=== PATIENT | female | born 1975 | race Hispanic/Latino ===

== ENCOUNTER 2021-09-19 18:08 | Emergency (ER) | payer OTHER ==
[2021-09-19] MEDS ORDERED: MORPHINE 4 MG/1 ML INJ IV ONE (18:23)
[2021-09-19] MEDS ORDERED: ONDANSETRON 4 MG/2 ML INJ IV ONE (18:23)
--- NOTE | 2021-09-19 18:27 | Emergency Department Report ---
ED General Adult HPI - General Stated complaint: SYNCOPAL EPISODE Time Seen by Provider: 09/19/21 18:13 Source: patient, EMS - History of Present Illness Initial comments: Patient is 45 years old female with history of migraine. Patient brought to the emergency room via EMS from work for evaluation of sudden onset of syncope. Patient stated that she passed out. Patient is currently complaining of tightness in her chest with shortness of breath. Patient denied any fever or chills. Patient denied any prior symptoms. No focal weakness, numbness or tingling sensation. - Related Data Previous Rx's Medication Instructions Recorded Last Taken Type Amoxicillin/Potassium Clav 1 each PO BID #14 tablet 09/19/21 Unknown Rx [Augmentin 875-125 Tablet] Ondansetron [Zofran Odt] 4 mg PO Q8HR PRN #14 tab.rapdis 09/19/21 Unknown Rx metroNIDAZOLE [Flagyl] 500 mg PO Q12HR #14 tab 09/19/21 Unknown Rx traMADoL [Ultram 50 MG tab] 50 mg PO Q4HR PRN #14 tablet 09/19/21 Unknown Rx Allergies Allergy/AdvReac Type Severity Reaction Status Date / Time No Known Allergies Allergy Verified 09/19/21 18:49 ED Review of Systems ROS: Stated complaint: SYNCOPAL EPISODE Other details as noted in HPI Comment: All other systems reviewed and negative Constitutional: denies: chills, fever ENT: denies: throat pain Cardiovascular: denies: chest pain, palpitations Gastrointestinal: denies: abdominal pain, nausea, vomiting, diarrhea, constipation, hematemesis, melena, hematochezia Musculoskeletal: denies: back pain Neurological: denies: headache, weakness, numbness, paresthesias, confusion, abnormal gait ED Past Medical Hx - Medications Home Medications: Home Medications Medication Instructions Recorded Confirmed Last Taken Type Amoxicillin/Potassium Clav 1 each PO BID #14 tablet 09/19/21 Unknown Rx [Augmentin 875-125 Tablet] Ondansetron [Zofran Odt] 4 mg PO Q8HR PRN #14 tab.rapdis 09/19/21 Unknown Rx metroNIDAZOLE [Flagyl] 500 mg PO Q12HR #14 tab 09/19/21 Unknown Rx traMADoL [Ultram 50 MG tab] 50 mg PO Q4HR PRN #14 tablet 09/19/21 Unknown Rx ED Physical Exam - General General appearance: alert, in no apparent distress - Head Head exam: Present: atraumatic, normocephalic, normal inspection - Eye Eye exam: Present: normal appearance - ENT ENT exam: Present: normal exam, normal orophraynx, mucous membranes moist - Neck Neck exam: Present: normal inspection, full ROM. Absent: tenderness, meningis mus - Respiratory Respiratory exam: Present: normal lung sounds bilaterally - Cardiovascular Cardiovascular Exam: Present: regular rate, normal rhythm, normal heart sounds - GI/Abdominal GI/Abdominal exam: Present: soft, normal bowel sounds. Absent: distended, tenderness, guarding, rebound, rigid, organomegaly, mass, bruit, pulsatile mass, hernia - Extremities Exam Extremities exam: Present: normal inspection, full ROM, normal capillary refill. Absent: tenderness, pedal edema, joint swelling, calf tenderness - Back Exam Back exam: Present: normal inspection, full ROM. Absent: CVA tenderness (R), CVA tenderness (L) - Neurological Exam Neurological exam: Present: alert, oriented X3, CN II-XII intact, normal gait, reflexes normal. Absent: motor sensory deficit - Psychiatric Psychiatric exam: Present: normal mood, anxious. Absent: suicidal ideation - Skin Skin exam: Present: warm, intact, normal color ED Course Vital Signs 09/19/21 09/19/21 09/19/21 18:48 21:30 22:30 Temperature 97.1 F L 97.7 F Pulse Rate 72 66 62 Respiratory 22 12 13 Rate Blood Pressure 119/80 Blood Pressure 110/77 115/70 [Right] O2 Sat by Pulse 99 99 98 Oximetry ED Medical Decision Making - Lab Data Result diagrams: 09/19/21 18:38 09/19/21 18:38 - Radiology Data Radiology results: report reviewed - Medical Decision Making Patient is 45 years old female with history of migraine. Patient brought to the emergency room via EMS from work for evaluation of sudden onset of syncope. P atient stated that she passed out. Patient is currently complaining of tightness in her chest with shortness of breath. Patient denied any fever or chills. Patient denied any prior symptoms. No focal weakness, numbness or tingling sensation. Patient received morphine and Zofran. Normal saline also. EKG is unremarkable. Labs reviewed and showed a potassium of 2.8. Patient received potassium chloride IV and p.o. CTA chest is unremarkable except for left descending colonic diverticulitis. CT brain is negative for acute finding. Patient advised to follow-up with her primary care physician in the next 2 to 3 days and to return to the ER if he develop any new symptoms. Critical care attestation.: If time is entered above; I have spent that time in minutes in the direct care of this critically ill patient, excluding procedure time. ED Disposition Clinical Impression: Acute abdominal pain, Acute chest pain, Syncope, Acute diverticulitis Disposition: HOME / SELF CARE / HOMELESS Is pt being admited?: No Condition: Stable Instructions: Nonspecific Chest Pain, Adult, Diverticulitis, Abdominal Pain, Adult, [id number], Chest Pain (ED), Syncope (ED) Prescriptions: Amoxicillin/Potassium Clav [Augmentin 875-125 Tablet] 1 each PO BID #14 tablet metroNIDAZOLE [Flagyl] 500 mg PO Q12HR #14 tab traMADoL [Ultram 50 MG tab] 50 mg PO Q4HR PRN #14 tablet PRN Reason: Pain Ondansetron [Zofran Odt] 4 mg PO Q8HR PRN #14 tab.rapdis PRN Reason: Nausea And Vomiting Referrals: MARILYN COY MD [Primary Care Provider] - 3-5 Days
[2021-09-19 19:10] LABS: Basophils # (Auto) 0.1 K/mm3 (0.0-0.1); Eosinophils # (Auto) 0.1 K/mm3 (0.0-0.4); Eosinophils % (Auto) 0.9 % (0.0-4.3); Hematocrit 39.8 % (30.3-42.9); Hemoglobin 13.2 gm/dl (10.1-14.3); Lymphocytes # (Auto) 3.8 K/mm3 (1.2-5.4); Lymphocytes % (Auto) 48.2 % (13.4-35.0); Mean Corpuscular HGB Conc 33 % (30-34); Mean Corpuscular Volume 92 fl (79-97); Monocytes # (Auto) 0.6 K/mm3 (0.0-0.8); Platelet Count 342 K/mm3 (140-440); Red Blood Count 4.32 M/mm3 (3.65-5.03); Red Cell Distribution Width 13.8 % (13.2-15.2)
[2021-09-19 19:19] LABS: Blood Urea Nitrogen 9 mg/dL (7-17); Calcium 9.3 mg/dL (8.4-10.2); Hemolysis Index 6
[2021-09-19 19:22] LABS: BUN/Creatinine Ratio 13
[2021-09-19] MEDS ORDERED: POTASSIUM CHLORIDE ER 20 MEQ TAB PO ONE (19:33)
[2021-09-19] MEDS: POTASSIUM CHLORIDE 10 MEQ 10 MEQ/100 ML BAG IV SCH ×2 (20:20→22:44)
[2021-09-19] MEDS ORDERED: PANTOPRAZOLE 40 MG INJ IV ONE (20:26)
--- NOTE | 2021-09-19 21:05 | Cat Scan Report ---
CT head/brain wo con INDICATION / CLINICAL INFORMATION: 45 years Female; Syncope. TECHNIQUE: Routine CT head without contrast. All CT scans at this location are performed using CT dos e reduction for ALARA by means of automated exposure control. COMPARISON: None. FINDINGS: BRAIN / INTRACRANIAL CONTENTS: No acute hemorrhage, mass effect, midline shift, hydrocephalus, or acu te, large territorial infarct. No signs of significant atrophy or chronic infarct. No significant whi te matter abnormality seen. CRANIOCERVICAL JUNCTION: No significant abnormality. ORBITS: No significant abnormality of visualized orbits. SINUSES / MASTOIDS: Visualized paranasal sinuses and mastoid air cells are essentially clear. ADDITIONAL FINDINGS: None. IMPRESSION: 1. No focal mass, hemorrhage, hydrocephalus, or acute, large territorial infarct. Signer Name: Tj Fajardo MD, III Signed: 09/19/2021 9:01 PM Workstation Name: [id number]
--- NOTE | 2021-09-19 21:16 | Cat Scan Report ---
CTA CHEST WITH CONTRAST INDICATION / CLINICAL INFORMATION: CHEST PAIN WITH SYNCOPE. TECHNIQUE: Axial CT images were obtained through the chest after injection of 100 cc of Omnipaque 350 IV contrast. 3 plane MIP and/or 3D reconstructions were produced. All CT scans at this location are performed using CT dose reduction for ALARA by means of automated exposure control. COMPARISON: None available. FINDINGS: PULMONARY ARTERIES: No pulmonary emboli. THORACIC AORTA: No significant abnormality. HEART: No significant abnormality. CORONARY ARTERY CALCIFICATION: None. MEDIASTINUM / HASEEB: No significant abnormality. PLEURA: No pleural effusion. No pneumothorax. LUNGS: No acute air space or interstitial disease. There is a 7 mm subpleural solid pulmonary nodule within the right lower lobe (series 2 image 69). There is a calcified granuloma within the right lowe r lobe. ADDITIONAL FINDINGS: None. UPPER ABDOMEN: There is diverticular disease of the proximal descending colon with peridiverticular i nflammation. SKELETAL STRUCTURES: No significant osseous abnormality. IMPRESSION: 1. No CT evidence for pulmonary embolism. 2. No acute findings. 3. Single incidental pulmonary nodule(s) in the right lower lobe measuring 7 mm with solid character istics. Recommendation according to Fleischner Society 2017 Guidelines: Low Risk Patient: CT at 6-12 months, then consider CT at 18-24 months; High Risk Patient: CT at 6-12 months, then CT at 18-24 shaye hs 4. Acute diverticulitis of the proximal descending colon. Signer Name: Brandon Plunkett DO Signed: 09/19/2021 9:12 PM Workstation Name: [id number]
[2021-09-19] MEDS ORDERED: SODIUM CHLORIDE 0.9% 500 ML 500 ML ONE (21:31)
[2021-09-19] MEDS ORDERED: SODIUM CHLORIDE 0.9% 500 ML 500 ML IV ONE (21:35)
[2021-09-19 22:58] VITALS: BP 115/70
[2021-09-19] MEDS ORDERED: PIPERACILLIN/TAZOBACTAM 3.375 3.375 GM/50 ML BAG IV ONE (23:10)
--- NOTE | 2021-09-20 11:43 | Electrocardiograph Report ---
[facility] Test Date: 2021-09-19 Test Time: 21:31:51 Pat Name: MADISYN RYAN Department: Room: Gender: F Public Health Specialist: RHEA : 1975 Requested By: SYDNEY HODGE Order Number: [id number] Reading MD: Gera Tapia Measurements Intervals [place] Rate: 65 P: 39 OK: 155 QRS: 63 QRSD: 80 T: 36 QT: 411 QTc: 427 Interpretive Statements Sinus rhythm No previous ECG available for comparison Electronically Signed On 09-20-2021 11:43:20 EDT by Gera Tapia
== END 2021-09-20 00:40 | disposition home or self-care (01) ==
LOC: ED 18:08
DX: K57.92 Diverticulitis of intestine, part unspecified, without perforation or abscess without bleeding (principal); G43.909 Migraine, unspecified, not intractable, without status migrainosus; R10.0 Acute abdomen; R07.9 Chest pain, unspecified; R55 Syncope and collapse
CPT/HCPCS: 36415; 70450; 71275; 80048; 83690; 84484; 85025; 85379; 93005; 96361; 96365; 96375; 99284; C9113; J2270; J2405; J2543; J3480; J7040; Q9967